=== PATIENT | male | born 1970 | race Caucasian/White ===

== ENCOUNTER 2018-09-06 11:45 | Outpatient (CLI) | payer MEDICAID, SELFPAY ==
[2018-09-06 13:27] LABS: CREATININE 0.94 mg/dL (0.70-1.30); Cholesterol 225 mg/dL (50-200); Glucose 99 mg/dL (70-100); HDL Cholesterol 78 mg/dL (40-60); LDL CHOLESTEROL 126 mg/dL (<100); Triglyceride 171 mg/dL (30-150)
== END 2018-09-06 12:05 ==
PROVIDERS: PCP Family Medicine; Visit Provider Family Medicine
DX: E78.5 Hyperlipidemia, unspecified (principal); E66.9 Obesity, unspecified
CPT/HCPCS: 36415; 80061; 82947; 83721; 82565

== ENCOUNTER 2018-12-06 10:15 | Day surgery (SDC) | payer MEDICAID, SELFPAY ==
--- NOTE | 2018-12-06 07:21 | W.COLOREPORT ---
Date of service: 12/06/18 Time of Service: 11:00 Colonoscopy Report Date of procedure: 12/06/18 Pre-op diagnosis general: Colon Cancer Screening Post-op diagnosis procedure note: other (Adenomatous polyps) Procedure: Colonoscopy with polypectomy by hot snare Surgeon: Reyna Recinos Anesthesia proc note operative: MAC (Bradford Neal CRNA/ ASA 3) Estimated blood loss (mL): 3 Pathology: other (Ascending colon polyp, transverse colon polyp) Complications: None Disposition: same day Indications: Mr. Kline is a pleasant 48-year-old gentleman who was seen in the office for his first screening colonoscopy. Risks, benefits and complications have been reviewed. Complications include but are not limited to bleeding, pain, perforation, missed small lesion/polyp, sore throat, aspiration and adverse reaction to the medications. Questions were entertained and answered to their satisfaction and they wished to proceed. No guarantees were given or implied. Prep: Miralax/Dulcolax Procedure Start Time: 11:00 Procedure End Time: 12:01 Retraction Time: 22 minutes Findings: 1. Sessile Ascending Colon Polyp 2 Sessile Transverse Colon Polyp Procedure Description: After informed consent was obtained the patient was taken to the procedure room and placed in a left decubitous position. Monitors were applied and a time out was done. The patients name, date of , procedure, allergies to medications and metal in their body was reviewed. The patient was then sedated. Once sedated and comfortable a rectal exam was done. External exam was normal. Internal exam revealed a normal sphincter tone and no palpable masses. The prostate was not felt. The scope was then introduced and retro-flexed. No internal hemorrhoids were identified. The scope was then advanced to the cecum without difficulty. The TI and appendiceal orifice were identified. The prep was adequate. The scope was then slowly retracted over 22 minutes back into the rectum. Polyps were removed in the ascending and transverse colon with a hot snare. The scope was removed and the patient was woken up and taken back to Same day surgery in stable condition. The patient tolerated the procedure well and there were no immediate complications. Follow up: The patient should follow up in 3-5 years unless they develop changes in bowel habits or other new gastrointestinal complaints.
--- NOTE | 2018-12-06 07:22 | W.PM.DSUDISC ---
Discharge Plan Disposition Patient Disposition: HOME Condition: Good Discharge Details Reason For Visit: Colon Cancer Screening Attending Provider: Reyna Recinos Primary Care Provider: Conrad Tran Home Meds and New Rx's Prescriptions: Continued amlodipine [Norvasc] 10 mg tablet 10 mg PO DAILY Qty: 90 RF: 3 atorvastatin [Lipitor] 80 mg tablet 80 mg PO HS Qty: 90 RF: 3 metoprolol succinate [Toprol XL] 50 mg tablet extended release 24 hr 50 mg PO DAILY Qty: 90 RF: 3 aspirin 325 MG tablet 325 mg PO DAILY RF: 0 nitroglycerin [Nitrostat] 0.4 MG tablet, sublingual 0.4 mg Sublingual DIRECTED Qty: 25 RF: 3 Discontinued bisacodyl [Dulcolax (bisacodyl)] 5 mg tablet,delayed release (DR/EC) 5 mg PO ONCE Qty: 4 RF: 0 polyethylene glycol 3350 17 gram/dose powder 255 g PO ONCE Qty: 255 RF: 0 Discharge Instructions Instructions: Colonoscopy (DC), Colorectal Polyps (DC) Additional Instructions: Findings: 2 polyps Follow up:3-5 years Please call if you develop: fevers >101.5 Nausea or Vomiting Abdominal pain that is not transient DAY SURGERY UNIT POST COLONOSCOPY INSTRUCTIONS 1. Because there will be medication in your system for the next 24 hours, you may feel a little sleepy. Your coordination will be affected. Therefore: a. Do not drive or operate dangerous equipment for 24 hours. b. Do not drink alcohol beverages for 24 hours (not even beer). c. Plan to go home and rest for the day. 2. Generally there are no restrictions on your activity after a day or so has gone by, but you may feel a bit fatigued for a few days. 3 After you arrive home you may have a light meal and return to a normal diet as you can tolerate it without feeling sick to your stomach. 4. After surgery, you may feel pain or discomfort. This should be only transient, but if it persists please contact your doctor. 5. If there are any questions regarding the findings of your procedure, please feel free to contact your doctor. 6. If you are unable to contact your doctor with a problem, contact the hospital at [phone]. 7. Continue all your regular medications unless directed otherwise. I understand the above instructions and have no questions. Signature of Patient or Responsible Adult Escort Date/Time Name of Responsible Adult Escort Signature of Nurse Date/Time Stand Alone Forms: Ashanti Emery (NAVEENU) Activity:: Activity as Tolerated Diet:: As Tolerated Discharge Orders Discharge Orders: Discharge Order (Routine); Ordered 12/06/18 Ordered By: Reyna Recinos DS: Diagnosis Discharge Diagnosis (1) S/P colonoscopy: Status: Acute (2) Colorectal polyp detected on colonoscopy: Status: Acute
[2018-12-06 10:41] VITALS: BP 137/95; PULSE 88; RESP 16; TEMP 36.6; O2SAT 96
[2018-12-06] MEDS: Lactated Ringers 1,000 ML 80 ML IV (11:00)
--- NOTE | 2018-12-06 11:40 | BOWEL_PTH ---
PATIENT: Reyes Kline LOC: [facility] U#:[id number] AGE/SX: 48/M ROOM: RE12/06/[address]: Reyna Recinos MD : 1970 BED: DIS: 12/06/2018 SPEC #: [id number] RECD: 12/06/18 12:54 STATUS: LEXII REQ #: [id number] GÉNESIS: 12/06/18 11:[address]: Reyna Recinos DEPT: Surgical Specimen RECD BY: Tanesha Alonzo ENTERED: 12/06/18 12:55 SP TYPE: Bowel OTHR DR: Conrad Tran MD Tissues: 1 - BIOPSY BOWEL 2 - BIOPSY BOWEL Procedures: GROSS AND MICRO LEVEL 4 Comments: [id number]
[2018-12-06 12:28] VITALS: BP 138/101; PULSE 65; RESP 16; TEMP 36; O2SAT 95
== END 2018-12-06 12:49 | disposition home or self-care (01) ==
LOC: SUR 10:15
PROVIDERS: PCP Family Medicine; Visit Provider Surgery
PROC: 0DJD8ZZ Inspection of Lower Intestinal Tract, Via Natural or Artificial Opening Endoscopic (ICD-10-PCS; CPT 45378; principal; 2018-12-06 10:30)
DX: Z12.11 Encounter for screening for malignant neoplasm of colon (principal); D12.2 Benign neoplasm of ascending colon; D12.3 Benign neoplasm of transverse colon; I10 Essential (primary) hypertension
CPT/HCPCS: 45385; 88305

== ENCOUNTER 2020-11-12 09:33 | Outpatient (CLI) | payer MEDICAID, SELFPAY ==
--- NOTE | 2020-11-12 09:30 | DI.US_ITS ---
EXAM: US SCROTUM CLINICAL HISTORY: hard non tender right scrotum, scrotal pain, hydrocele, N50.82, N43.3. TECHNIQUE: Scrotal ultrasound performed using grayscale, color-flow and spectral Doppler analysis. COMPARISON: No exams were available for comparison FINDINGS: Right testicle: 9.9 x 8.2 x 10.0 cm Echogenicity: Normal. Contour: Smooth. Mass: There are 3 hypoechoic masses within the right testicle. The largest measures 2.2 x 2.1 x 1.9 cm. The smaller smallest measures 1.3 x 1.4 x 1.0 cm. There is a 3rd which measures 1.9 x 1.4 x 1.9 cm. There may be a mild amount of vascularity particularly associated with the 3rd lesion. Microlithiasis: None. Hydrocele: None. Variocele: None. Hernia: No peristalsing bowel loop identified. Epididymis: Not visualized sonographically. Left testicle: 4.3 x 2.1 x 3.9 cm Echogenicity: Normal. Contour: Smooth. Mass: None seen. Microlithiasis: None. Hydrocele: There is a large hydrocele measuring 15.2 x 12.7 x 8.2 cm. Variocele: None. Hernia: No peristalsing bowel loop identified. Epididymis: Not visualized sonographically. DOPPLER: Color: There was difficulty obtaining color flow in the right testicle. Flow is seen within the left testicle. Duplex: Bilateral testicular arterial waveforms visualized. IMPRESSION: 1. Enlarged right testicle with 3 discrete intra testicular masses. Differential considerations incl ude neoplasm, metastatic disease or nonneoplastic causes including granulomatous disease or abscess. 2. Large left hydrocele. DATA REPOSITORY:
== END 2020-11-12 09:53 ==
PROVIDERS: PCP Family Medicine; Visit Provider Nurse Practitioner Gerontology
DX: N43.3 Hydrocele, unspecified; N50.82 Scrotal pain; N50.89 Other specified disorders of the male genital organs
CPT/HCPCS: 76870

== ENCOUNTER 2020-11-15 02:35 | Outpatient (CLI) | payer MEDICAID, SELFPAY ==
[2020-11-16 16:58] LABS: COVID-19 RT-PCR UVMMC Result Negative (Negative)
== END 2020-11-15 02:55 ==
PROVIDERS: PCP Family Medicine; Visit Provider Nurse Practitioner Gerontology
DX: Z11.59 Encounter for screening for other viral diseases (principal)
CPT/HCPCS: U0003

== ENCOUNTER 2020-11-19 06:13 | Day surgery (SDC) | payer MEDICAID, SELFPAY ==
[2020-11-19 06:20] VITALS: BP 161/101; PULSE 83; RESP 16; TEMP 36.4; O2SAT 98
[2020-11-19] MEDS: Lactated Ringers 1,000 ML 80 ML IV (06:43)
--- NOTE | 2020-11-19 07:02 | W.PM.HP.N ---
Date of service: 11/19/20 Time of Service: 07:02 Assessment and Plan Assessment and plan (1) Mass of testicle: Status: Acute Assessment and plan: We will do a right inguinal orchiectomy (2) Hydrocele: Status: Acute Assessment and plan: We will do a left hydrocelectomy by a scrotal approach History of Present Illness History of Present Illness Chief Complaint: Bilateral scrotal masses Narrative: Reyes is a 50-year-old male referred to urology by [facility] for scrotal swelling. Patient states that approximately 10 to 15 years ago here at our facility he had a right hydrocelectomy that did not take. He has for short duration his scrotal swelling was reduced but it then returned to presurgery state. He was told by that urologist he had a 50-50 chance for complete resolution of the hydrocele. Patient states that over the last 10 to 15 years things have been manageable until the last 8 to 10 months. He notes that instead of the right side being only swollen, he is having bilateral swelling. He states that sitting more uncomfortable as the days go on. He is having difficulty with sleep and trying to find a position where he can elevate the scrotum and be able to sleep. He notes overall that the discomfort has been worsening and he is at the point where he cannot handle conservative treatments anymore. He has been doing scrotal support. He finds that this is not really helped because he cannot find a scrotal support device large enough. He notes that urinating is no problem. He notes he has no difficulty with intercourse. He was evaluated with a scrotal ultrasound which confirmed the left sided hydrocele. The right side, however, showed multiple solid masses within the testis. PMH Hypertension History of [place] Hydrocele Alcohol use disorder Obesity Hyperlipidemia Coronary artherosclerosis of [place] coronary vessel SX Hydrocelectomy Stents?cardiac Review of Systems Narrative: No fevers or chills. No weight loss No vision change or dysphasia No diabetes or thyroid No shortness of breath, cough or hemoptysis No chest pain or palpitations No nausea, vomiting, hepatitis, ulcers, jaundice, diarrhea or constipation No seizures, strokes or peripheral neuropathy No bleeding disorders or anemia No gout PFSH Medical History Alcohol use disorder ASCVD (arteriosclerotic cardiovascular disease) Colorectal polyp detected on colonoscopy (~12/06/18) HTN (hypertension) Mass of testicle Surgical History Hydrocelectomy S/P colonoscopy (~12/06/18) Stent placement 1 vascular a. 2009 placement b. Inferior NSTEMI 09/05/09 Melyssa-4.26 CK 3039 (Per [facility] [place] record) F/U with PCP annually Family History Mother No problems noted. Father Heart disease Sister No problems noted. Brother Myocardial infarction Grandfather Heart disease Grandfather Aneurysm Grandmother Diabetes Grandmother Aneurysm Social History Smoking/Tobacco Use Status: Current-Occasional Tobacco Type: smokeless tobacco Smokeless tobacco user: chewing tobacco Smoking risk assessment performed?: Yes Alcohol Intake: current Alcohol Intake frequency: 3 or more drinks per day Alcohol type: beer Drug use: Never Substance use type: does not use Do you feel safe at home: Yes Do you feel safe in your relationship?: Yes Meds Home Medications and Allergies Home Medications Medication Instructions Recorded Confirmed Type nitroglycerin [Nitrostat] 0.4 mg SUBLINGUAL DIRECTED #25 05/10/13 11/13/20 History tab-cap atorvastatin 80 mg tablet 80 mg PO HS #90 tab-cap 02/15/20 11/19/20 Rx amlodipine [Norvasc] 10 mg PO HS 11/13/20 11/19/20 History aspirin [Adult Aspirin Regimen] 81 mg PO HS 11/13/20 11/19/20 History metoprolol succinate 50 mg 50 mg PO HS #90 tab 11/14/20 Rx tablet,extended release 24 hr Allergies Allergy/AdvReac Type Severity Reaction Status Date / Time No Known Allergies Allergy Verified 11/19/20 06:17 Exam Const General: cooperative and no acute distress Neck Neck: supple Resp Effort & Inspection: normal respiratory effort Auscultation: clear to auscultation bilaterally Cardio Rate: regular rate Rhythm: regular rhythm GI Inspection: obesity Palpation: soft Other: Large left hemiscrotum transilluminates Large right hemiscrotum with increased firmness does not transilluminate Neuro General: patient alert, patient awake and patient oriented x3 Results Last Vital Signs Temp 36.4 C L 11/19/20 06:20 Pulse 83 11/19/20 06:20 Resp 16 11/19/20 06:20 BP 161/101 H 11/19/20 06:20 Pulse Ox 98 11/19/20 06:20 COVID-19 Screening Have you, or household traveled for leisure in last 14 days?: No Had IN PERSON contact w/suspected or confirmed C-19 person: No
[2020-11-19 07:34] LABS: LDH 178 U/L (85-227)
[2020-11-19] MEDS: ceFAZolin 2 GM/50 ML BAG IVPB (07:40)
--- NOTE | 2020-11-19 08:27 | TES_PTH ---
PATIENT: Reyes Kline LOC: [facility] U#:[id number] AGE/SX: 50/M ROOM: RE11/19/[address]: Darío Calvillo MD : 1970 BED: DIS: 11/19/2020 SPEC #: [id number] RECD: 11/19/20 12:39 STATUS: LEXII REQ #: [id number] GÉNESIS: 11/19/20 08:[address]: Darío Calvillo DEPT: Surgical Specimen RECD BY: Tanesha Alonzo ENTERED: 11/19/20 12:41 SP TYPE: SHERLY KNIGHT DR: Conrad Tran MD Tissues: 1 - TESTIS TUMOR Procedures: IMMUNOPEROXIDASE STAIN GROSS AND MICRO LEVEL 6 DECALCIFICATION Comments: [id number]
[2020-11-19] MEDS: Bupivacaine 0.25% Pres-Free 30 ML VIAL (08:29)
--- NOTE | 2020-11-19 09:09 | W.PM.DSUDISC ---
Discharge Plan Disposition Patient Disposition: HOME Condition: Stable Discharge Details Attending Provider: Darío Calvillo Primary Care Provider: Conrad Tran Home Meds and New Rx's Prescriptions: No Action atorvastatin [Lipitor] 80 mg tablet 80 mg PO HS Qty: 90 RF: 3 nitroglycerin [Nitrostat] 0.4 MG tablet, sublingual 0.4 mg Sublingual DIRECTED Qty: 25 RF: 3 metoprolol succinate [Toprol XL] 50 mg tablet extended release 24 hr 50 mg PO HS Qty: 90 RF: 3 aspirin [Adult Aspirin Regimen] 81 mg tablet,delayed release (DR/EC) 81 mg PO HS RF: 0 amlodipine [Norvasc] 10 mg tablet 10 mg PO HS RF: 0 Discharge Instructions Additional Instructions: Followup 1 to 2 weeks for surgical pathology No lifting over 10 pounds until followup visit may removal scrotal dressings and shower 11/20/2020 Ice pack to scrotum (bag of frozen peas works well) Activity:: see above Remove Dressings/Wound Care:: 24 hours Shower/Bathe:: 24 hours Diet:: As Tolerated Discharge Orders Discharge Orders: Discharge Order (Routine); Ordered 11/19/20 Ordered By: Darío Calvillo DS: Diagnosis Discharge Diagnosis (1) Mass of testicle: Status: Acute (2) Hydrocele: Status: Acute
--- NOTE | 2020-11-19 09:14 | W.PM.DSUDISC ---
Discharge Plan Disposition Patient Disposition: HOME Condition: Stable Discharge Details Attending Provider: Darío Calvillo Primary Care Provider: Conrad Tran Home Meds and New Rx's Prescriptions: New oxycodone 5 mg tablet 5 - 10 mg PO Q6H PRN (Reason: pain) Qty: 20 RF: 0 No Action atorvastatin [Lipitor] 80 mg tablet 80 mg PO HS Qty: 90 RF: 3 nitroglycerin [Nitrostat] 0.4 MG tablet, sublingual 0.4 mg Sublingual DIRECTED Qty: 25 RF: 3 metoprolol succinate [Toprol XL] 50 mg tablet extended release 24 hr 50 mg PO HS Qty: 90 RF: 3 aspirin [Adult Aspirin Regimen] 81 mg tablet,delayed release (DR/EC) 81 mg PO HS RF: 0 amlodipine [Norvasc] 10 mg tablet 10 mg PO HS RF: 0 Discharge Instructions Additional Instructions: Followup 1 to 2 weeks for surgical pathology No lifting over 10 pounds until followup visit may removal scrotal dressings and shower 11/20/2020 Ice pack to scrotum (bag of frozen peas works well) Activity:: see above Remove Dressings/Wound Care:: 24 hours Shower/Bathe:: 24 hours Diet:: As Tolerated Discharge Orders Discharge Orders: Discharge Order (Routine); Ordered 11/19/20 Ordered By: Darío Calvillo DS: Diagnosis Discharge Diagnosis (1) Mass of testicle: Status: Acute (2) Hydrocele: Status: Acute
--- NOTE | 2020-11-19 09:28 | ROE_ITS ---
Date of service: 11/19/20 Time of Service: 09:28 Operative Note Operative Note DATE OF PROCEDURE: 11/19/20 PRE-OP DIAGNOSIS: 1. Right testicular mass 2. Left hydrocele POST-OP DIAGNOSIS: same PROCEDURE: 1. Right radical orchiectomy 2. Left hydrocelectomy SURGEON: Darío Calvillo CONTRACT TECHNICAL WRITER: Keyanna Avila ANESTHESIA: other (General without intubation) ESTIMATED BLOOD LOSS: 50 PATHOLOGY: other (right testis and cord) COMPLICATIONS: None Patient was transported to: same day Patient's condition: stable Indications: This is a 50-year-old gentleman with a past history significant for right hydrocele. He had undergone right hydrocelectomy about 10 to 12 years ago. He has had a progressive increase in the size of his scrotum. By ultrasound and by exam, the left scrotal enlargement is related to a large hydrocele. On the right side, however, there are solid lesion within the testis worrisome for malignancy. He presents for right inguinal orchiectomy (after tumor markers have been drawn) and left hydrocelectomy. Findings: Diffusely enlarged right testis Large left hydrocele with normal appearing testicle and keratin pearls Procedure Description: The patient was brought to the operating room on 11/19/2020. He was given preoperative IV antibiotics. A preoperative alpha- fetoprotein, beta hCG and LDH were drawn for tumor markers. After successful induction of general anesthesia without intubation, he was placed in the supine position. His genitalia and lower abdomen were prepped and draped. We began our procedure with the right radical orchiectomy. The right inguinal incision was made and extended down through the subcutaneous fat until the aponeurosis of the external oblique was identified. The aponeurosis was incised along the direction of its fibers. The spermatic cord was then identified and the cord was isolated and secured with a Galt drain. We then able to access the right testis through the inguinal ring. The right testis was scarred into the right hemiscrotum from his previous hydrocelectomy. We extended our incision toward the scrotum and we were able to use blunt dissection to free and delivered the testis into the right incisions. Any remaining attachments between the testis and scrotum were taken down using Bovie. The right spermatic cord was then divided using suture ligature (0 silk) to secure the remaining stumps of the cord. The testis and spermatic cord were then sent to pathology for permanent section. The wound was irrigated with saline. Hemostasis was obtained with electrocautery. The aponeurosis of the external oblique was reapproximated using a running 2-0 Vicryl suture. The subcutaneous tissue was reapproximated with a running 3-0 Vicryl and the skin was closed with a subcuticular 4-0 Vicryl suture. We then turned our attention to the left hydrocele. A transverse scrotal incision was made over the left hemiscrotum. The dartos muscle was divided with electrocautery. The testis was then delivered through the left scrotal incision onto our surgical field. The testis was further freed from its rounding adventitia using sharp and blunt dissection. The large hydrocele sac was opened anteriorly and the hydrocele fluid was aspirated. A few small keratin pearls w ere identified within the sac. The redundant portion of the sac was then excised and the cut edges of the sac were reapproximated behind the left testis using 2-0 chromic suture in a locking fashion. The testis itself appeared normal. The left testis was then positioned back within the left hemiscrotum. The dartos muscle was reapproximated with 3-0 chromic suture and the skin was closed with simple interrupted 4-0 chromic sutures. Dermabond was applied to the incisions. A fluff dressing and scrotal support were likewise applied. The patient tolerated the procedure well with no complications.
[2020-11-19 10:01] VITALS: BP 167/107; PULSE 58; RESP 16; TEMP 36.4; O2SAT 98
[2020-11-19] MEDS: oxyCODONE 5 MG TAB 10 MG PO (10:13)
[2020-11-20 13:10] LABS: Beta-HCG, Quant, Tumor Marker <0.6 IU/L (<1.4)
[2020-11-21 09:43] LABS: AFP Tumor Marker <2.5 ng/mL (<8.1)
== END 2020-11-19 10:56 | disposition home or self-care (01) ==
PROVIDERS: Nurse Practitioner Gerontology; PCP Family Medicine; Visit Provider Urology
PROC: (CPT 54530; principal; 2020-11-19 07:30)
PROC: (CPT 54530; 2020-11-19 07:30)
DX: N44.2 Benign cyst of testis (principal); N43.3 Hydrocele, unspecified; I10 Essential (primary) hypertension
CPT/HCPCS: 54530; 55040; 36415; NC; 82105; 83615; 84702; 88309; 88311; 88361; J0131; J0690; J1100; J1885; J2001; J2250; J2405

== ENCOUNTER 2021-01-18 02:04 | Outpatient (CLI) | payer MEDICAID, SELFPAY ==
[2021-01-19 14:51] LABS: COVID-19 RT-PCR UVMMC Result Positive (Negative)
== END 2021-01-18 02:05 | disposition home or self-care (01) ==
LOC: LBO 02:04
PROVIDERS: PCP Family Medicine; Visit Provider Family Medicine
DX: Z20.822 Contact with and (suspected) exposure to COVID-19 (principal)
CPT/HCPCS: U0003

== ENCOUNTER 2021-01-25 03:22 | Outpatient (CLI) | payer MEDICAID, SELFPAY ==
[2021-01-26 14:35] LABS: COVID-19 RT-PCR UVMMC Result Positive (Negative)
== END 2021-01-25 03:23 | disposition home or self-care (01) ==
LOC: LBO 03:22
PROVIDERS: PCP Family Medicine; Visit Provider Family Medicine
DX: Z20.822 Contact with and (suspected) exposure to COVID-19 (principal)
CPT/HCPCS: U0003

== ENCOUNTER 2021-02-22 02:21 | Outpatient (CLI) | payer MEDICAID, SELFPAY ==
[2021-02-22 08:13] LABS: Hemoglobin A1C 6.1 % (<5.7)
[2021-02-22 09:08] LABS: ALT 50 U/L (16-63); AST 26 U/L (15-37); Albumin 3.9 g/dL (3.4-5.0); Alkaline Phosphatase 72 U/L (46-116); Bilirubin, Direct 0.2 mg/dL (0.0-0.2); Bilirubin, Total 0.8 mg/dL (0.2-1.0); Calculated LDL 74 mg/dL (<100); Cholesterol 171 mg/dL (<200); Glucose 100 mg/dL (74-106); HDL Cholesterol 68 mg/dL (40-60); Total Protein 7.2 g/dL (6.4-8.2); Triglyceride 148 mg/dL (<150)
[2021-02-25 11:18] LABS: Hepatitis C Ab w Rflx HCV PCR Negative (Negative)
== END 2021-02-22 02:22 | disposition home or self-care (01) ==
LOC: LBO 02:21
PROVIDERS: PCP Family Medicine; Visit Provider Family Medicine
DX: E78.5 Hyperlipidemia, unspecified (principal); I25.119 Atherosclerotic heart disease of native coronary artery with unspecified angina pectoris; R73.9 Hyperglycemia, unspecified; G72.89 Other specified myopathies; Z11.59 Encounter for screening for other viral diseases
CPT/HCPCS: 36415; 80061; 80076; 82947; 86803; 82565; 83036

== ENCOUNTER 2021-10-29 16:52 | Outpatient (REF) | payer MEDICAID, SELFPAY ==
[2021-10-31 14:04] LABS: COVID-19 RT-PCR UVMMC Result Negative (Negative)
== END 2021-10-29 16:53 | disposition home or self-care (01) ==
LOC: LBN 16:52
PROVIDERS: PCP Family Medicine; Visit Provider Family Medicine
DX: Z20.822 Contact with and (suspected) exposure to COVID-19 (principal)
CPT/HCPCS: U0003

== ENCOUNTER 2022-05-06 02:37 | Outpatient (CLI) | payer MEDICAID, SELFPAY ==
[2022-05-06 08:28] LABS: Hemoglobin A1C 5.6 % (<5.7)
[2022-05-06 08:52] LABS: ALT 72 U/L (16-63); AST 54 U/L (15-37); Albumin 3.8 g/dL (3.4-5.0); Alkaline Phosphatase 69 U/L (46-116); Bilirubin, Direct 0.2 mg/dL (0.0-0.2); Bilirubin, Total 0.6 mg/dL (0.2-1.0); GGT 62 U/L (15-85); Total Protein 7.1 g/dL (6.4-8.2)
[2022-05-06 09:05] LABS: Calculated LDL 53 mg/dL (<100); Cholesterol 190 mg/dL (<200); HDL Cholesterol 117 mg/dL (40-60); Triglyceride 102 mg/dL (<150)
[2022-05-06 19:46] LABS: PSA, Screening 0.5 ng/mL (<=3.5)
== END 2022-05-06 02:38 | disposition home or self-care (01) ==
LOC: LBO 02:37
PROVIDERS: PCP Family Medicine; Visit Provider Family Medicine
DX: I10 Essential (primary) hypertension (principal); R73.9 Hyperglycemia, unspecified; E78.5 Hyperlipidemia, unspecified; F10.10 Alcohol abuse, uncomplicated; G72.89 Other specified myopathies; Z12.5 Encounter for screening for malignant neoplasm of prostate
CPT/HCPCS: 36415; 80061; 80076; 84153; 82565; 82977; 83036

== ENCOUNTER 2022-09-25 10:11 | Day surgery (SDC) | payer MEDICAID, SELFPAY ==
--- NOTE | 2022-09-24 20:52 | W.PM.DSUDISC ---
Date of service: 09/25/22 Time of Service: 11:34 Discharge Plan Disposition Patient Disposition: HOME Condition: Good Discharge Details Reason For Visit: screening colonoscopy Attending Provider: Eduardo Padilla Primary Care Provider: Conrad Tran Home Meds and New Rx's Prescriptions: Continued lorazepam 1 mg tablet 1 mg PO DAILY PRN (Reason: anxiety) Qty: 5 0RF Rx Instructions: take 30 mins before flight as needed nitroglycerin [Nitrostat] 0.4 MG tablet, sublingual 0.4 mg Sublingual DIRECTED Qty: 25 Rx Instructions: PRN 5 MIN X 3 atorvastatin [Lipitor] 80 mg tablet 80 mg PO HS Qty: 90 3RF amlodipine [Norvasc] 10 mg tablet 10 mg PO HS Qty: 90 3RF aspirin [Adult Aspirin Regimen] 81 mg tablet,delayed release (DR/EC) 81 mg PO HS Discontinued polyethylene glycol 3350 17 gram/dose powder 238 g PO ONCE Qty: 238 0RF Rx Instructions: take per colonoscopy instructions bisacodyl [Dulcolax (bisacodyl)] 5 mg tablet,delayed release (DR/EC) 5 mg PO ONCE Qty: 4 0RF Rx Instructions: take per colonoscopy instructions No Action metoprolol succinate 50 mg tablet extended release 24 hr 50 mg PO HS Rx Instructions: add to 100 mg tab to equal 150 mg/day metoprolol succinate 100 mg tablet extended release 24 hr 100 mg PO HS Discharge Instructions Instructions: Colorectal Polyps (DC) Additional Instructions: 1. If tolerated, consume a soft, low fiber diet for 1-2 days. 2[address] Do not drive, drink alcohol, operate machinery, make critical decisions, or do activities that require coordination or balance for 24 hours. 3. Because air was put into your colon during the procedure, expelling air from your rectum (passing gas or farting) is normal. 4. You may not have a bowel movement for 1-3 days because of the colonoscopy prep. This is normal. 5. Go directly to the emergency room if you notice any of the following: Develop chills (warm to touch), or if you have a thermometer and your temperature is above 101 Difficulty breathing or difficultly swallowing Persistent vomiting Severe abdominal pain, other than gas cramps Severe chest pain Black, tarry stools Any bleeding ? exceeding one tablespoon 6. Call your physician if the site where your intravenous was started becomes red, swollen, painful, and warm to touch. 7. Your physician has reviewed your pre-procedure medications. Please continue to take those medications as previously ordered. You will be given specific information/education regarding any changes to your medications before leaving. Activity:: Activity as Tolerated Diet:: As Tolerated Discharge Orders Discharge Orders: Discharge Order (Routine); Ordered 09/24/22 Ordered By: Eduardo Padilla DS: Diagnosis Discharge Diagnosis (1) Cecal polyp: Status: Acute Asessment and Plan: I will contact you with results of the biopsy
--- NOTE | 2022-09-24 20:54 | COLE_ITS ---
Date of service: 09/25/22 Time of Service: 11:35 Colonoscopy Report Date of procedure: 09/25/22 Pre-op diagnosis general: Routine health maintenance screening colonoscopy Post-op diagnosis procedure note: other (Cecal polyp) Procedure: Screening colonoscopy Surgeon: Eduardo Padilla Anesthesia Type: General:No Airway Estimated blood loss (mL): 10 Pathology: other (Cecal polyp) Complications: None Disposition: same day Indications: Reyes is a 52-year-old male who is got a history of colonoscopy with a tubular adenoma. He is here in routine follow-up for another screening Prep: Miralax/Dulcolax Procedure Start Time: 10:59 Procedure End Time: 11:14 Retraction Time: 11 Findings: 1 polyp in the cecum Procedure Description: After the induction of monitored anesthetic care, and with the patient in left lateral decubitus position, I began by performing an external anorectal exam.? Perineum and skin were normal, as was the anal verge.? There was evidence of external hemorrhoids.? Next, I performed a digital rectal exam.? I did not appreciate any abnormal findings.? Next, I advanced a colonoscope into the rectal vault.? I performed retroflexion.? There were grade 2 internal hemorrhoids.? Using insufflation, I then advanced the colonoscope beyond the rectal folds and into the sigmoid colon before advancing towards the cecum.? The quality of the prep was excellent.? The scope was noted to be in the cecum by identification of the ileocecal valve and appendiceal orifice.? Immediately in the cecal vault there was a 0.75 cm sessile polyp. I was able to perform polypectomy with a cold snare. The specimen was retrieved without any difficulty I then began withdrawing the colonoscope using repeated irrigation as necessary for full evaluation of the colonic mucosa. ?Once the scope was withdrawn to the level of the rectum, great care was taken to examine portions of the rectal folds.? Finally, the scope was withdrawn and the patient was brought to the same-day surgery recovery unit as the anesthetic wore off. ?The f indings and instructions were shared with the patient prior to discharge.
[2022-09-25 10:29] VITALS: BP 148/92; PULSE 62; RESP 16; TEMP 36.6; O2SAT 99
--- NOTE | 2022-09-25 10:40 | W.ANESPRE ---
General Info Date of Service Date Performed: 09/25/22 Height: 5 ft 9 in Weight: 87.543 kg Body Mass Index (BMI): 28.5 Surgical Procedure: Operation Date: 09/25/22 11:05 Proposed Procedure Side Surgeon rory Padilla MD Meds Allergies and Home Medications Allergies Allergy/AdvReac Type Severity Reaction Status Date / Time No Known Allergies Allergy Verified 09/25/22 10:26 Home Medication Medication Instructions Recorded nitroglycerin 0.4 mg sublingual 0.4 mg sublingual DIRECTED #25 05/10/13 tablet (Nitrostat) tab-caps aspirin 81 mg tablet,delayed 81 mg PO HS 11/13/20 release (Adult Aspirin Regimen) lorazepam 1 mg tablet 1 mg PO DAILY PRN anxiety #5 tabs 04/30/22 amlodipine 10 mg tablet (Norvasc) 10 mg PO HS #90 tabs 08/28/22 atorvastatin 80 mg tablet (Lipitor) 80 mg PO HS #90 tab-caps 08/28/22 metoprolol succinate 100 mg 100 mg PO HS 09/25/22 tablet,extended release 24 hr metoprolol succinate 50 mg 50 mg PO HS 09/25/22 tablet,extended release 24 hr Current Visit Medications: Current Medications Generic Name Dose Route Start Last Admin Trade Name Freq PRN Reason Stop Dose Admin Hyoscyamine Sulfate 0.125 mg 09/24/22 20:54 Hyoscyamine 0.125 Mg Sl/Oral/Chew SL DIRECTED PRN Ringer's Solution 1,000 mls @ 80 mls/hr 09/25/22 06:00 IV 10/24/22 23:59 INFUSION [facility] IV Miscellaneous Supplies 1 each 09/25/22 06:00 Iv Access IV 10/24/22 23:59 DIRECTED [facility] Ondansetron HCl 4 mg 09/24/22 20:54 Ondansetron 4 Mg/2 Ml Vial IVP Q4H PRN PRN Nausea / Vomiting Sodium Chloride 0 ml 09/25/22 06:00 Normal Saline Flush 10 Ml Syr IV 10/24/22 23:59 PRN PRN Sodium Chloride 0 ml 09/25/22 06:00 Normal Saline 10 Ml Vial IJ 10/24/22 23:59 DIRECTED PRN Sterile Water 0 ml 09/25/22 06:00 Water,Injection,Sterile 10 Ml Vial IJ 10/24/22 23:59 DIRECTED PRN [facility] Active Problems Active Problems: Problem Status Onset Code Essential hypertension I10 Essential tremor G25.0 Excessive drinking alcohol F10.10 Obesity E66.9 Encounter for screening colonoscopy Z12.11 Colorectal polyp detected on colonoscopy ~12/06/18 K63.5 Medical History Medical History Alcohol use disorder ASCVD (arteriosclerotic cardiovascular disease) 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 2008 placement b. Inferior NSTEMI 09/05/09 Melyssa-4.26 CK 3039 ([place] [facility] [place] F/U with PCP annually Tobacco Smoking/Tobacco Use Status: Current-Occasional Tobacco Type: smokeless tobacco Smokeless tobacco user: chewing tobacco Passive smoking exposure: No Second hand exposure: Yes Alcohol Alcohol Intake: current Alcohol intake frequency: a few times a week Alcohol type: beer Substance Use Substance use: Never Substance use type: does not use Vital Signs and Lab Results Vital Signs Most Recent Vital Signs in EMR: Most Recent Vital Signs Temp Pulse Resp BP Pulse Ox 36.6 C 62 16 148/92 H 99 09/25/22 10:29 09/25/22 10:29 09/25/22 10:29 09/25/22 10:29 09/25/22 10:29 Lab Results Blood Type / Crossmatch: No Data to Display Complete Blood Count: No Data to Display Complete Metabolic Panel: No Data to Display Liver Function Panel: No Data to Display Coagulation Panel: No Data to Display Cardiac Panel: No Data to Display Arterial Blood Gas: No Data to Display Venous Blood Gas: No Data to Display Pancreas Panel: No Data to Display Thyroid Panel: No Data to Display Infectious Disease: No Data to Display Blood Cultures: No Data to Display Toxicology Panel: No Data to Display Anesthesia Assessment and Plan Anesthesia History Personal History: No History of Anesthesia Complications Family History: No Family History of Anesthesia Complications Exercise Tolerance Exercise Tolerance: Metabolic Equivalents>4 Cardiac & Pulmonary Exam Cardiac Exam: Normal S1/S2 Heart Sounds Pulmonary Exam: Clear Bilateral Breath Sounds and No cough or Cold Implantable Cardiac Device Does patient have a Pacemaker or an ICD?: No Airway Exam Known Difficult Airway: No Mallampati Class: 2 Mouth Opening: Normal (> 3cm) Thyromental Distance: Greater than 3 cm Neck Range of Motion: Full ROM Neck Circumference: Normal Teeth Condition: Normal Dentition ASA Classification ASA Score: ASA 2 Emergency Case?: No NPO Status NPO Status: NPO Clears >2 hours, Solids >8 hours Anesthesia Plan Resuscitation Status: Full Code Anesthesia Technique: General Anesthesia Airway Planned: Natural Airway Monitors Used: Standard Monitors
[2022-09-25 10:44] VITALS: BMI 28.5
[2022-09-25] MEDS: Lactated Ringers 1,000 ML 80 ML IV (10:50)
--- NOTE | 2022-09-25 11:05 | BOWEL_PTH ---
PATIENT: Reyes Kline LOC: [facility] U#:[id number] AGE/SX: 52/M ROOM: RE09/25/[address]: Eduardo Padilla MD : 1970 BED: DIS: 09/25/2022 SPEC #: [id number] RECD: 09/25/22 12:58 STATUS: DWAINHakeem RE #: [id number] GÉNESIS: 09/25/22 11:[address]: Eduardo Padilla DEPT: Surgical Specimen RECD BY: Tanesha Alonzo ENTERED: 09/25/22 12:58 SP TYPE: Bowel OTHR DR: Conrad Tran MD Tissues: 1 - BIOPSY BOWEL Procedures: GROSS AND MICRO LEVEL 4 Comments: [id number]
[2022-09-25 11:22] VITALS: BP 118/84; PULSE 71; RESP 18; TEMP 36.3; O2SAT 97
[2022-09-25 11:52] VITALS: BP 131/92; PULSE 58; RESP 18; TEMP 36.3; O2SAT 99
--- NOTE | 2022-09-25 12:11 | W.ANESPOSTOP ---
Postoperative Evaluation Date, Time and Location Date Performed: 09/25/22 Time Performed: : Patient Location: Day Surgery Unit Vital Signs Most Recent Imported Vital Signs: Most Recent Vital Signs Temp Pulse Resp BP Pulse Ox 36.3 C L 71 18 118/84 97 09/25/22 11:22 09/25/22 11:22 09/25/22 11:09/25/22 11:09/25/22 11: Pain Score Most Recent Pain Score: Most Recent Pain Score Pain Level 0 09/25/22 11:22 Assessment Mental Status: Awake (Alert & Oriented to Patient Baseline) Airway and Respiratory Function: Patent airway with normal (patient baseline) respiratory exam Cardiovascular Function: Hemodynamically Stable Hydration Status: Adequately Hydrated Nausea & Vomiting: No Nausea or Vomiting Pain: Pt. Denies Any Pain Peripheral Nerve Block: Patient did not receive a nerve block
== END 2022-09-25 12:05 | disposition home or self-care (01) ==
PROVIDERS: PCP Family Medicine; Visit Provider Surgery
PROC: 0DJD8ZZ Inspection of Lower Intestinal Tract, Via Natural or Artificial Opening Endoscopic (ICD-10-PCS; CPT 45378; principal; 2022-09-25 11:00)
DX: Z12.11 Encounter for screening for malignant neoplasm of colon (principal); K63.5 Polyp of colon; K64.1 Second degree hemorrhoids; Z86.010 Personal history of colon polyps
CPT/HCPCS: 45385; 88305; J2704